=== PATIENT | female | born 1970 | race Caucasian/White ===

== ENCOUNTER 2020-04-03 01:20 | Outpatient (CLI) | payer SELFPAY ==
[2020-04-03 18:03] LABS: SARS-CoV-2 RNA PCR Negative
== END 2020-04-03 01:21 | disposition home or self-care (01) ==
LOC: ANHCOVIDDT 01:21
PROVIDERS: PCP Family Medicine; Visit Provider Surgery Plastic and Reconstructive Surgery
DX: Z01.812 Encounter for preprocedural laboratory examination (principal); Z20.828 Contact with and (suspected) exposure to other viral communicable diseases
CPT/HCPCS: 87635; C9803; U0003

== ENCOUNTER 2020-04-06 01:59 | Day surgery (SDC) | payer SELFPAY ==
[2020-03-30 10:04] VITALS: BMI 23.1
[2020-04-06] VITALS (8 sets, daily range): BP systolic 84–126; BP diastolic 51–75; PULSE 63–83; RESP 10–16; TEMP 36.1–36.9; O2SAT 100
--- NOTE | ~2020-04-06 | NM_ITS ---
EXAMINATION: NM sentinel node w imaging DATE: 04/06/2020 11:47 INDICATION: Melanoma at the popliteal fossa the right lower limb TECHNIQUE: 0.470 mCi Tc-99m filtered sulfur colloid was injected in two aliquots along the medial and lateral sides of the melanoma at the right popliteal fossa. A single anterior scintigram of the lowe r pelvis, groin and proximal thighs were obtained. IMPRESSION: 1. Right popliteal fossa melanoma sentinel lymph node radiopharmaceutical injection with a single se ntinel node identified at the right inguinal region. Reviewed, dictated and finalized at location A. IMPRESSION: 1. Right popliteal fossa melanoma sentinel lymph node radiopharmaceutical inje ction with a single sentinel node identified at the right inguinal region.
[2020-04-06] MEDS: LACTATED RINGERS 1,000 ML 30 ML IV CONT ×2 (09:55→14:12)
--- NOTE | 2020-04-06 10:20 | WPDANESEPPF ---
Anes - Initial Pre Proc Eval Procedure: Operation Date: 04/06/20 11:30 Proposed Procedures p Wide Excision Melanoma Right Popliteal Fossa with Split Thickness Skin Graft, [place] Lymph Node Biopsy - Farshad Gayle MD Date/Time: 04/06/20 10:20 Surgeon: Farshad Gayle MD Pre Op Diagnosis: melanoma right popliteal fossa Patient Data Age: 49 Gender: F Height: 5 ft 4 in Weight: 59.9 kg Last Vital Signs Temp 98.4 F 04/06/20 09:17 Pulse 83 04/06/20 09:17 Resp 16 04/06/20 09:17 BP 117/72 04/06/20 09:17 Pulse Ox 100 04/06/20 09:17 Allergies Allergy/AdvReac Type Severity Reaction Status Date / Time Penicillins AdvReac Unknown UNKNOWN Verified 04/06/20 10:08 REACTION CHILD Home Medications Medication Instructions Recorded Confirmed Type ascorbic acid (vitamin C) [Vitamin 1 g PO DAILY 03/30/20 04/06/20 History C] calcium carbonate-vitamin D3 1 cap PO DAILY 03/30/20 04/06/20 History [Calcium 600 + D(3)] omega 6-jyx-hoi-fish oil [Fish Oil] 1 cap PO DAILY 03/30/20 04/06/20 History Patient hx anesthesia problems: none Family hx anesthesia problems: none PMFSH Surgical History Surgical History (Updated 03/25/20 @ 15:12 by Lynn Santoyo RN) History of breast surgery mastopexy History of section 03/09/1995, 11/05/1997 Family History Family History (Updated 02/01/17 @ 08:14 by DOCTOR UNKNOWN) Father Hypertension Family history of malignant neoplasm of urinary bladder Social History Social History Years smoked: 4 Smoking status: Smoker, status unknown Tobacco type: cigarettes Additional smoking assessment comments: QUIT 3-4 YEARS AGO Alcohol intake: current Spiritual care concerns: No Anes - Eval Final PreProcedure Day of Procedure 04/06/20 10:20 Patient weight: normal Heart: regular rate and rhythm Lungs: clear to auscultation Airway: Mallampati scale class II Neurological: alert and oriented Last oral intake: >/= 8 hours ASA classification: II Emergent: no Anesthetic plan: proceed Anesthesia type and monitoring: general LMA and standard monitoring Informed Consent: The patient's anesthetic plan and its attendant risks and benefits were discussed with the patient/family/POA. Questions were solicited and answers provided to the satisfaction of the patient/family/POA.
--- NOTE | 2020-04-06 11:31 | SUR.PREOP ---
1125-PT RETURNED FROM NM.
--- NOTE | 2020-04-06 12:16 | WPDHPUPDATE1 ---
History and Physical Update Update Date/Time: 04/06/20 12:16 History and Physical has been reviewed, including an updated exam of the patient. There are NO changes in the patient's condition. Risks, benefits, and alternatives have been discussed and questions answered. Patient agrees to proceed with procedure.
--- NOTE | 2020-04-06 12:32 | P.OP_ITS ---
Procedure Note - Detailed Date of procedure: 04/06/20 Pre-op diagnosis: melanoma right popliteal fossa Post-op diagnosis: same Procedure performed: 1. Wide excision melanoma right popliteal fossa 5.5cm 2. Complex closure (wide undermining) right popliteal fossa 5.5cm. 3. Right inguinal sentinel node biopsy Description of procedure: Risks, benefits, alternatives were discussed in extensive detail. Want her to be very realistic about the risks involved as well as expectations. Made sure answered all of her questions to her satisfaction today and consent was obtained. Preoperatively the patient was taken to Radiology. A radionucleatide was injected and right inguinal sentinel node was identified. She was taken to the operating room placed in the lateral decubitus position. Anesthesia had been provided anesthesiology and prepped and draped in a standard sterile fashion. Using the probe I identified the node. 1% lidocaine and 0.25% Marcaine with epinephrine was used anesthetize locally. Fifteen blade used to make an inc ision and I continued until the node was identified. There was no evidence of neurovascular or other structure injury. The background was well less than 10%. This was sent to pathology. I closed with 2-0 Vicryl followed by 3-0 Monocryl in a running subcuticular 4-0 Monocryl and tissue glue. The melanoma was marked with greater than 1 cm margins. I transposed this onto the right thigh for planned graft site and 1% lidocaine and 0.25% Marcaine with epinephrine was used anesthetize locally. I then injected the melanoma site with 1% lidocaine and 0.25% Marcaine with epinephrine. Fifteen blade used to make an incision around melanoma. This was continued down until the level of the fashion removed. I verified strict hemostasis. At this point I was able to widely undermine and close with 2-0 Vicryl, 3-0 Monocryl, and 3-0 Nylon vertical matress. Awoke and taken the PACU without difficulty. All instrument sponge counts were correct at the end of the case. Anesthesia: GLMA Surgeon: Farshad Gayle MD Estimated blood loss (mL): 5 Drains: No Packing: Yes ([place]) Pathology: yes Complications: No immediate complications Condition: stable Disposition: PACU
[2020-04-06] MEDS: LIDO 1%/EPINEPHRINE 1:100,000 20 ML VIAL INFILTRATE (12:51)
[2020-04-06] MEDS: ceFAZolin 2 GM/D5W 50 ML 2 GM/50 ML BAG IVPB (12:51)
== END 2020-04-06 16:05 | disposition home or self-care (01) ==
PROVIDERS: PCP Family Medicine; Visit Provider Surgery Plastic and Reconstructive Surgery
PROC: (CPT 38531; principal; 2020-04-06 11:30)
DX: C43.71 Malignant melanoma of right lower limb, including hip (principal); Z87.891 Personal history of nicotine dependence
CPT/HCPCS: 38531; 11606; 13121; 78195; 88305; 88307; 88342; A9520; J0690; J1100; J2250; J2405; J2704; J3010; J7120

== ENCOUNTER → 2021-01-12 15:10 | Outpatient (CLI) | payer SELFPAY ==
--- NOTE | ~2021-01-12 | US_ITS ---
US soft tissue groin RT 01/12/2021 15:39 Indication: Subcutaneous mass in the right upper thigh. Previous lymph node biopsy in 02/2020 which wa s benign. Procedure: High-resolution ultrasound of the right upper thigh in the area of palpable concern Comparison: No prior studies for comparison. Findings: In the area of palpable concern right upper thigh there is a 2.1 cm cyst with an adjacent n ormal appearing 1.7 cm lymph node. There appears to be a small sinus tract extending from the cyst to the skin surface. Impression: 1: 2.1 cm cyst of the right upper thigh in the area of palpable concern with sinus tract extending to the skin. This is most likely benign. Considerations include sebaceous cyst and seroma secondary to previous biopsy. Superimposed infection is not excluded., Particularly given a sinus tract to the ski n. 2: 1.7 cm lymph node with normal fatty hilum, likely reactive. Reviewed, dictated and finalized at location B. Impression: 1: 2.1 cm cyst of the right upper thigh in the area of palpable concern with si nus tract extending to the skin. This is most likely benign. Considerations inc lude sebaceous cyst and seroma secondary to previous biopsy. Superimposed infec tion is not excluded., Particularly given a sinus tract to the skin. 2: 1.7 cm lymph node with normal fatty hilum, likely reactive.
== END ==
PROVIDERS: PCP Family Medicine; Visit Provider Nurse Practitioner
DX: R22.41 Localized swelling, mass and lump, right lower limb (principal)
CPT/HCPCS: 76882

== ENCOUNTER → 2021-01-20 08:29 | Outpatient (REF) | payer SELFPAY | LOC: ANHLAB 08:29 | PROVIDERS: PCP Family Medicine; Visit Provider Nurse Practitioner | DX: D22.72 Melanocytic nevi of left lower limb, including hip (principal) | CPT/HCPCS: 88305 ==

== ENCOUNTER → 2021-08-01 13:24 | Outpatient (REF) | payer SELFPAY | LOC: ANHLAB 13:24 | PROVIDERS: PCP Family Medicine; Visit Provider Nurse Practitioner | DX: M95.9 Acquired deformity of musculoskeletal system, unspecified (principal) | CPT/HCPCS: 88305 ==

== ENCOUNTER → 2023-02-07 07:47 | Outpatient (CLI) | payer SELFPAY ==
--- NOTE | ~2023-02-07 | MMUS_ITS ---
EXAMINATION: MM diagnostic ayo BI w mary, US breast RT limited HISTORY: Follow-up right breast asymmetry TECHNIQUE: Additional 3-D tomosynthesis images of the breasts were performed and synthetic 2-D images were generated. CAD analysis was submitted and interpreted. High resolution Limited right breast ult rasound was performed. COMPARISON: Comparison to multiple prior studies sequentially, with oldest reviewed study dated 04/22. BREAST PARENCHYMAL COMPOSITION: Breast composed of scattered areas of fibroglandular density FINDINGS: MAMMOGRAPHIC FINDINGS: The left breast is stable without evidence for malignancy. There is focal asymmetry in the upper oute r quadrant of the right breast posteriorly which is new compared with prior studies. ULTRASOUND: Limited right breast ultrasound: At 9:00, 3 cm from the nipple, there is a complicated cyst measuring 4 mm. At 10:00, 2 cm from the nipple there is an oval hypoechoic mass measuring 3 mm with circumscri bed margins, parallel orientation, no posterior features and no internal vascularity, likely benign. At 10:00, 2 cm from the nipple there is an antiparallel hypoechoic mass with posterior acoustic and e nhancement measuring 7 mm maximum dimension. No internal vascularity. IMPRESSION: 1. Antiparallel 7 mm right breast mass at 10:00, 2 cm from the nipple. 2. Ultrasound-guided right breast biopsy recommended. BI-RADS category 4, suspicious findings. Reviewed, dictated and finalized at location A. IMPRESSION: 1. Antiparallel 7 mm right breast mass at 10:00, 2 cm from the nipple. 2. Ultrasound-guided right breast biopsy recommended. BI-RADS category 4, suspicious findings.
== END ==
PROVIDERS: PCP Physician Assistant; Visit Provider Physician Assistant
DX: N64.4 Mastodynia (principal); R92.8 Other abnormal and inconclusive findings on diagnostic imaging of breast; N63.13 Unspecified lump in the right breast, lower outer quadrant
CPT/HCPCS: 76642; 77062; 77066; G0279

== ENCOUNTER 2023-03-07 08:51 | Outpatient (CLI) | payer SELFPAY ==
--- NOTE | ~2023-03-07 | MMUS_ITS ---
US breast biopsy RT w image, MM post biopsy invasive RT EXAMINATION: US GUIDED NEEDLE BIOPSY WITH VACUUM ASSISTANCE DATE: 03/07/2023 10:14 CDT INDICATION: Right breast mass seen on prior examination. Ultrasound-guided core biopsy is requested to evaluate for malignancy. TECHNIQUE AND FINDINGS: The risks and potential benefits of the procedure were discussed with the patient, and written inform ed consent was obtained. After sterile preparation of the right breast, 1% lidocaine was utilized fo r local anesthesia. 1% lidocaine with epinephrine was used for deep anesthesia. A 10G vacuum-assisted biopsy gun needle was advanced through to the outer edge of the region of inter est from a lateral approach utilizing sonographic guidance. A total of 4 tissue core samples were ob tained through the lesion. An Inrad tissue marker clip was then placed at the biopsy site. Hemostasi s was achieved. The patient tolerated procedure well and there was no evidence of immediate complication. The patien t was given verbal instructions partly is from the department. Right breast mammograms to document t issue marker clip placement. The tissue samples were submitted to surgical pathology for histologic a nalysis. IMPRESSION: 1. Successful ultrasound-guided vacuum-assisted biopsy of right breast mass with tissue marker place ment. Please refer to pathology report for histologic analysis. Reviewed, dictated and finalized at location A. IMPRESSION: 1. Successful ultrasound-guided vacuum-assisted biopsy of right breast mass wi th tissue marker placement. Please refer to pathology report for histologic piper lysis.
== END 2023-03-07 08:52 | disposition home or self-care (01) ==
PROVIDERS: PCP Physician Assistant; Visit Provider Physician Assistant
DX: N63.10 Unspecified lump in the right breast, unspecified quadrant (principal)
CPT/HCPCS: 19083; 88305; A4648

== ENCOUNTER 2023-04-23 11:17 | Outpatient (NON) | payer SELFPAY | END 2023-04-23 11:18 | disposition home or self-care (01) | LOC: ANHLAB 04-25 11:18 | PROVIDERS: PCP Physician Assistant; Visit Provider Nurse Practitioner | DX: D48.5 Neoplasm of uncertain behavior of skin (principal); L57.0 Actinic keratosis | CPT/HCPCS: 88305 ==

== ENCOUNTER 2024-10-27 09:22 | Outpatient (CLI) | payer SELFPAY ==
--- NOTE | ~2024-10-27 | MM_ITS ---
EXAMINATION: MM diagnostic ayo BI w mary HISTORY: Prior biopsy with benign fibrocystic changes TECHNIQUE: Additional 3-D tomosynthesis images of the breasts were performed and synthetic 2-D images were generated. CAD analysis was submitted and interpreted. COMPARISON: Comparison to multiple prior studies sequentially, with oldest reviewed study dated 09/11. BREAST PARENCHYMAL COMPOSITION: Not dense: There are scattered areas of fibroglandular density. FINDINGS: There are no suspicious masses, calcifications or architectural distortion in either breast to suggest malignancy. The breasts are stable. There is a tissue marker in the upper outer quadrant of the right breast from previous benign biopsy. IMPRESSION: 1. No evidence for malignancy in either breast. 2. Routine yearly screening mammogram and regular clinical breast examination are recommended. BI-RADS Category 2: Benign finding(s). Reviewed, dictated and finalized at location A. IMPRESSION: 1. No evidence for malignancy in either breast. 2. Routine yearly screening mammogram and regular clinical breast examination a re recommended. BI-RADS Category 2: Benign finding(s).
== END 2024-10-27 09:23 | disposition home or self-care (01) ==
PROVIDERS: PCP Family Medicine
DX: N63.10 Unspecified lump in the right breast, unspecified quadrant (principal); Z98.890 Other specified postprocedural states
CPT/HCPCS: 77062; 77066; G0279